=== PATIENT | female | born 1995 | race Hispanic/Latino ===

== ENCOUNTER 2018-02-12 04:11 | Emergency (ER) | payer BC ==
[2018-02-12 04:28] VITALS: TEMP 97.7; O2SAT 97
[2018-02-12] MEDS ORDERED: Sodium Chloride 0.9% 1,000 ML IV STA ×2 (04:42→05:36)
--- NOTE | 2018-02-12 04:45 | ED PDOC ---
HPI:Nausea, Vomiting, Diarrhea Chief Complaint (Provider): vomiting, diarrhea History Per: Patient History/Exam Limitations: no limitations Onset/Duration Of Symptoms: Hrs (6) Current Symptoms Are (Timing): Still Present Additional Complaint(s): 32 y/o female presents for evaluation of multiple episodes of vomiting and diarrhea x 6 hours. Patient states she is unable to keep any liquids down. Denies fever, cough, congestion, chest pain, shortness of breath, urinary symptoms, recent travel, sick contacts. <Lona Jeter C - Last Filed: 02/12/18 04:43> <Truman Pagan Y - Last Filed: 02/12/18 05:12> Time Seen by Provider: 02/12/18 04:30 Chief Complaint (Nursing): GI Problem Past Medical History Reviewed: Historical Data, Nursing Documentation, Vital Signs Vital Signs: Last Vital Signs Temp 97.7 F 02/12/18 04:24 Pulse 104 H 02/12/18 04:24 Resp 19 02/12/18 04:24 BP 140/53 L 02/12/18 04:24 Pulse Ox 97 02/12/18 04:24 - Medical History PMH: No Chronic Diseases - Family History Family History: States: No Known Family Hx <Lona Jeter - Last Filed: 02/12/18 04:43> Vital Signs: Last Vital Signs Temp 97.7 F 02/12/18 04:24 Pulse 104 H 02/12/18 04:24 Resp 19 02/12/18 04:24 BP 140/53 L 02/12/18 04:24 Pulse Ox 97 02/12/18 04:46 <Truman Pagan Y - Last Filed: 02/12/18 05:12> - Allergies Allergies/Adverse Reactions: Allergies Allergy/AdvReac Type Severity Reaction Status Date / Time No Known Allergies Allergy Verified 02/12/18 04:28 Review of Systems ROS Statement: Except As Marked, All Systems Reviewed And Found Negative Gastrointestinal: Positive for: Nausea, Vomiting, Abdominal Pain, Diarrhea <Lona Jeter - Last Filed: 02/12/18 04:43> Physical Exam - Reviewed Nursing Documentation Reviewed: Yes Vital Signs Reviewed: Yes - Physical Exam Appears: Positive for: Well, Non-toxic, Uncomfortable Head Exam: Positive for: ATRAUMATIC, NORMAL INSPECTION, NORMOCEPHALIC Skin: Positive for: Normal Color Eye Exam: Positive for: Normal appearance ENT: Positive for: Normal ENT Inspection Cardiovascular/Chest: Positive for: Regular Rate, Rhythm Respiratory: Positive for: Normal Breath Sounds Gastrointestinal/Abdominal: Positive for: Bowel Sounds, Soft, Tenderness (epigastric) Back: Positive for: Normal Inspection Extremity: Positive for: Normal ROM Neurologic/Psych: Positive for: Alert, Oriented (x3) <Lona Jeter - Last Filed: 02/12/18 04:43> - ECG O2 Sat by Pulse Oximetry: 97 - Progress ED Course And Treament: -cbc -cmp -lipase -urinalysis -upreg -IV NS bolus -IV pepcid -IV zofran <Lona Jeetr - Last Filed: 02/12/18 04:43> Medical Decision Making Medical Decision Makin Patient endorsed to me by PRANAY Solorzano, pending labs and reevaluation. Scribe Attestation: Documented by Suzette Briscoe, acting as a scribe for Truman Pagan MD. Provider Scribe Attestation: All medical record entries made by the Scribe were at my direction and personally dictated by me. I have reviewed the chart and agree that the record accurately reflects my personal performance of the history, physical exam, medical decision making, and the department course for this patient. I have also personally directed, reviewed, and agree with the discharge instructions and disposition. <Truman Pagan Y - Last Filed: 02/12/18 05:12> Disposition - Disposition Disposition Time: 05:00 Patient Signed Over To: Truman Pagan Handoff Comments: pending labs, re-eval <Lona Jeter - Last Filed: 02/12/18 04:43> <Truman Pagan - Last Filed: 02/12/18 05:12> - Clinical Impression Clinical Impression: Gastroenteritis - Disposition Condition: STABLE Forms: [employer] (Portuguese)
[2018-02-12 05:14] LABS: BASO % 0.1 % (0.0-2.0); EOS # 0.1 K/uL (0.0-0.7); HEMOGLOBIN 14.1 g/dL (12.0-16.0); LYMPH % 8.3 % (20.0-40.0); MEAN CELL VOLUME 83.7 fl (81.0-99.0); MEAN CORPUSCULAR HEMOGLOBIN 27.3 pg (27.0-31.0); MEAN CORPUSCULAR HGB CONC 32.6 g/dL (33.0-37.0); MEAN PLATELET VOLUME 9.4 fl (7.2-11.7); MONO # 0.3 K/uL (0.0-0.8); MONO % 2.2 % (0.0-10.0); NEUT # 10.4 K/uL (1.8-7.0); NEUT % 88.4 % (50.0-75.0); PLATELET COUNT 233 K/uL (130-400); RBC 5.16 Mil/uL (3.80-5.20); RED CELL DISTRIBUTION WIDTH 13.3 % (11.5-14.5); WHITE BLOOD COUNT 11.7 K/uL (4.8-10.8)
[2018-02-12 05:18] LABS: ALB/GLOB RATIO 1.2 (1.0-2.1); ALBUMIN 3.9 g/dL (3.5-5.0); ALT/SGPT 24 U/L (9-52); AST/SGOT 20 U/L (14-36); BLOOD UREA NITROGEN 15 mg/dl (7-17); CALCIUM 8.6 mg/dL (8.4-10.2); GFR NON-AFRICAN AMERICAN > 60; LIPASE 30 U/L (23-300)
[2018-02-12 06:19] LABS: BANDS 1 % (0-2); EOSINOPHIL 2 % (0-7); LYMPHOCYTE 9 % (20-50); MONOCYTE 4 % (0-10); NEUTROPHIL 84 % (42-75); PLATELET ESTIMATE NORMAL (NORMAL); TOTAL CELLS COUNTED 100
[2018-02-12] MEDS ORDERED: Iohexol 300 100 ML IJ ONE (07:25)
[2018-02-12] MEDS ORDERED: Sodium Chloride 0.9% 50 ML IV ONE (07:25)
[2018-02-12 07:59] LABS: SQUAMOUS EPITHIAL 7 /hpf (0-5); URINE BACTERIA RARE (<OCC); URINE BILIRUBIN NEGATIVE (NEGATIVE); URINE BLOOD SMALL (NEGATIVE); URINE CLARITY CLOUDY (Clear); URINE COLOR YELLOW (YELLOW); URINE GLUCOSE (UA) NEG (NEGATIVE); URINE LEUKOCYTE ESTERASE NEG Leu/uL (Negative); URINE PROTEIN NEGATIVE (NEGATIVE); URINE UROBILINOGEN 0.2-1.0 mg/dL (0.2-1.0)
--- NOTE | 2018-02-12 08:21 | ED PDOC ---
- Laboratory Results Result Diagrams: 02/12/18 04:48 02/12/18 04:48 - ECG O2 Sat by Pulse Oximetry: 97 Medical Decision Making Medical Decision Makin Patient endorsed to me by Dr. Pagan pending CT. Scribe Attestation: Documented by Satnam Maurice, acting as a scribe for Say Chowdhury MD. Tolerated PO. No abd pain Provider Scribe Attestation: All medical record entries made by the Scribe were at my direction and personally dictated by me. I have reviewed the chart and agree that the record accurately reflects my personal performance of the history, physical exam, medical decision making, and the department course for this patient. I have also personally directed, reviewed, and agree with the discharge instructions and disposition. Disposition - Clinical Impression Clinical Impression: Gastroenteritis - POA Present On Arrival: None - Disposition Referrals: [facility] [Outside] Disposition: Routine/Home Disposition Time: 14:05 Condition: FAIR Prescriptions: Ondansetron [Zofran] 4 mg PO Q8H #10 tab Instructions: Viral Gastroenteritis Forms: [employer] ([place] Zealander)
--- NOTE | 2018-02-12 11:00 | CT ---
Date of service: 02/12/2018 PROCEDURE: CT Abdomen and Pelvis with contrast HISTORY: Abdominal pain and vomiting. COMPARISON: None. TECHNIQUE: Intravenous contrast dose: 95 cc Omnipaque 300 Radiation dose: Total exam DLP = 931.48 mGy-cm. This CT exam was performed using one or more of the following dose reduction techniques: Automated exposure control, adjustment of the mA and/or kV according to patient size, and/or use of iterative reconstruction technique. FINDINGS: LOWER THORAX: Unremarkable. LIVER: Unremarkable. No gross lesion or ductal dilatation. GALLBLADDER AND BILE DUCTS: Unremarkable. PANCREAS: Unremarkable. No gross lesion or ductal dilatation. SPLEEN: Unremarkable. ADRENALS: Unremarkable. No mass. KIDNEYS AND URETERS: Unremarkable. No hydronephrosis. No solid mass. VASCULATURE: Unremarkable. No aortic aneurysm. No atherosclerotic calcification or mural plaque present. BOWEL: None dilated fluid-filled small bowel a nonspecific finding can be seen with enteritis. No mechanical or obstructing lesions identified. APPENDIX: No abnormalities to suggest acute appendicitis. No right lower quadrant inflammatory processes identified. PERITONEUM: Unremarkable. No free fluid. No free air. LYMPH NODES: Unremarkable. No enlarged lymph nodes. BLADDER: Unremarkable. REPRODUCTIVE: Unremarkable. BONES: No acute fracture. OTHER FINDINGS: None. IMPRESSION: Nondilated fluid-filled small bowel and to lesser extent colon. No evidence of mechanical obstruction. Findings likely represent mild diffuse enteritis.
[2018-02-12 14:12] VITALS: BP 105/69; PULSE 78; RESP 16
== END 2018-02-12 14:12 | disposition home or self-care (01) ==
LOC: H.ER 04:11 → EDBD 04:11 → H.ER 14:12
DX: K52.9 Noninfective gastroenteritis and colitis, unspecified (principal)
CPT/HCPCS: 74177; 80053; 81003; 81025; 83690; 84702; 85025; 96374; 96375; 99284; J2405; J2765; J7030; Q9967